=== PATIENT | male | born 1990 | race Caucasian/White ===

== ENCOUNTER 2019-07-04 21:47 | Emergency (ER) | payer BC ==
[~2019-07-04] VITALS: Ht 188 cm; Wt 84.8 kg
[2019-07-04 21:52] VITALS: BP 112/69
== END 2019-07-04 22:24 | disposition home or self-care (01) ==
LOC: MED 21:47
DX: S46.001A Unspecified injury of muscle(s) and tendon(s) of the rotator cuff of right shoulder, initial encounter (principal); X58.XXXA Exposure to other specified factors, initial encounter; Y92.89 Other specified places as the place of occurrence of the external cause; Y93.89 Activity, other specified; Y99.8 Other external cause status
CPT/HCPCS: 73030; 99283; Q0092

== ENCOUNTER 2019-07-08 13:49 | Emergency (ER) | payer BC ==
[~2019-07-08] VITALS: Ht 185.4 cm; Wt 88.5 kg
[2019-07-08 13:59] VITALS: BP 115/72
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
[2019-07-08 14:15] VITALS: BP 115/72
--- NOTE | 2019-07-08 14:15 | NUR ---
Patient discharged with v/s stable. Written and verbal after care instructions given and explained. Patient alert, oriented and verbalized understanding of instructions. Ambulatory with steady gait. All questions addressed prior to discharge. ID band removed. Patient advised to follow up with ORTHOPEDIC SURGEON reaction and side effects. Opportunity to ask questions provided and answered.
== END 2019-07-08 14:15 | disposition home or self-care (01) ==
LOC: MED 13:49
DX: M25.511 Pain in right shoulder (principal); Z87.828 Personal history of other (healed) physical injury and trauma
CPT/HCPCS: 99281

== ENCOUNTER 2020-03-31 17:59 | Emergency (ER) | payer BC ==
[~2020-03-31] VITALS: Ht 188 cm; Wt 90.7 kg
[2020-03-31 18:18] VITALS: BP 119/75
--- NOTE | 2020-03-31 18:22 | NUR ---
Melinda houston in [facility] - 03/31/20 at 1850 by MED1 BIANCA
--- NOTE | 2020-03-31 18:44 | NUR ---
PATIENT AMBULATED TO [facility].
--- NOTE | 2020-03-31 18:46 | NUR ---
Melinda houston in [facility] - 03/31/20 at 1850 by MED1 BIB SELF C/O RIGHT HAND PAIN & SWELLING X 1 WEEK.
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
--- NOTE | 2020-03-31 19:21 | NUR ---
WRIST AND FOREARM SPLINT APPLIED TO PT R ARM, FASTENED TO SIZE. +CSM
[2020-03-31 19:30] VITALS: BP 119/75
--- NOTE | 2020-03-31 19:30 | NUR ---
Patient discharged with v/s stable. Written and verbal after care instructions given and explained. Patient verbalized understanding. Ambulatory with steady gait. All questions addressed prior to discharge. Advised to follow up with PMD.
== END 2020-03-31 19:30 | disposition home or self-care (01) ==
LOC: MED 17:59
DX: S60.221A Contusion of right hand, initial encounter (principal); W23.0XXA Caught, crushed, jammed, or pinched between moving objects, initial encounter; Y93.89 Activity, other specified; Y92.89 Other specified places as the place of occurrence of the external cause; Y99.8 Other external cause status
CPT/HCPCS: 73130; 99283

== ENCOUNTER 2020-04-10 17:20 | Emergency (ER) | payer BC ==
[~2020-04-10] VITALS: Ht 188 cm; Wt 93.0 kg
[2020-04-10 17:25] VITALS: BP 116/61
--- NOTE | 2020-04-10 17:29 | NUR ---
BIBS from home with c/o left EYE IRRITATION, REPORT ITCHINESS, WATERY, AND REDNESS x 2 weeks. DENIES PAIN. Asking for note for missed work yesterday and today. MED HX: DENIES, NO RX, NKDA. A, A, O x 4, cooperative. Left eye without redness, irritation or foreign body noted. In no acute distress, VVS, HOB elevated. Resting comfortably, bed in low position, side rails up x 2. Waiting examination/evaluation by MD, will continue to monitor and assess.
--- NOTE | 2020-04-10 17:53 | NUR ---
Visual acuity preformed. OD 20/50 OS 20/50 OU 20/30
[2020-04-10] MEDS ORDERED: TETRACAINE HCL/PF 0.5% OPTH 4 ML BTL OP ONE (17:55)
[2020-04-10] MEDS ORDERED: FLUORESCEIN OPTH STRIP 1 MG OP ONE (17:55)
--- NOTE | 2020-04-10 18:07 | NUR ---
ARAVIND Anders at bedside to preform eye exam
[2020-04-10] MEDS ORDERED: LORA10OD44 PO (18:19)
[2020-04-10] MEDS ORDERED: [UNRECOGNIZED DRUG - CODE] OP (18:19)
--- NOTE | 2020-04-10 18:54 | NUR ---
Patient deemed medically stable for discharge by Dr. De Anda. Patient discharged with v/s stable. Written and verbal after care instructions given and explained. Patient alert, oriented and verbalized understanding of instructions. Ambulatory with steady gait. All questions addressed prior to discharge. ID band removed. Patient advised to follow up with PMD. Rx of loratadine and epinastine given, sent directly to [facility] pharmacy in [place]. Patient educated on indication of medication including possible reaction and side effects. Opportunity to ask questions provided and answered. All belongings taken from ED with patient home. Note for missed work today given, patient asking for note from missing yesterday but patient not seen yesterday.
== END 2020-04-10 18:54 | disposition home or self-care (01) ==
LOC: MED 17:20
DX: H10.12 Acute atopic conjunctivitis, left eye (principal); J30.89 Other allergic rhinitis; Z79.899 Other long term (current) drug therapy
CPT/HCPCS: 99283

== ENCOUNTER 2020-06-24 15:08 | Emergency (ER) | payer SELFPAY ==
[~2020-06-24] VITALS: Ht 188 cm; Wt 90.7 kg
[~2020-06-24 15:08] MED LIST: LORA10OD44 PO; [UNRECOGNIZED DRUG - CODE] OP
[2020-06-24 15:12] VITALS: BP 126/72
--- NOTE | 2020-06-24 15:15 | NUR ---
PATIENT AMBULATED TO BED 4
--- NOTE | 2020-06-24 15:19 | NUR ---
29/M PRESENTS TO ED WITH C/O RASH X4 DAYS. PATIENT HAS GENERALIZED RASH THAT APPEARS RED WITH AREAS OF DRYNESS. PATIENT DENIES USING ANY NEW PRODUCTS ON HIS SKIN THAT MAY HAVE CAUSED IRRITATION, PATIENT DENIES PAIN OR ITCH. STATES HE TOOK BENADRYL ONCE AND HAS BEEN USING HYDROCORTISONE CREAM WITH NO IMPROVEMENT. PATIENT DENIES FEVER, CHILLS, OR SOB.
[2020-06-24] MEDS ORDERED: NYSTRO TP (16:06)
[2020-06-24] MEDS ORDERED: FLUC150T PO (16:06)
[2020-06-24 16:26] VITALS: BP 126/72
--- NOTE | 2020-06-24 16:26 | NUR ---
Patient discharged with v/s stable. Written and verbal after care instructions given and explained. Patient alert, oriented and verbalized understanding of instructions. Ambulatory with steady gait. All questions addressed prior to discharge. ID band removed. Patient advised to follow up with PMD. Rx of Fluconazole and Nystatin given. Patient educated on indication of medication including possible reaction and side effects. Opportunity to ask questions provided and answered.
== END 2020-06-24 16:26 | disposition home or self-care (01) ==
LOC: MED 15:08
DX: B36.9 Superficial mycosis, unspecified (principal); Z79.899 Other long term (current) drug therapy
CPT/HCPCS: 99283